=== PATIENT | male | born 1950 ===

== ENCOUNTER 2016-12-14 16:25 | Emergency (ER) | payer MEDICARE | END 2016-12-14 18:13 | disposition home or self-care (01) | LOC: D.ER 16:25 | DX: L03.311 Cellulitis of abdominal wall (principal); S30.861A Insect bite (nonvenomous) of abdominal wall, initial encounter; W57.XXXA Bitten or stung by nonvenomous insect and other nonvenomous arthropods, initial encounter; Y93.89 Activity, other specified; Y92.89 Other specified places as the place of occurrence of the external cause; L25.9 Unspecified contact dermatitis, unspecified cause ==